=== PATIENT | male | born 1980 | race Hispanic/Latino ===

== ENCOUNTER 2017-11-06 06:30 | Day surgery (SDC) | payer BC ==
[2017-11-06 07:17] VITALS: O2SAT 100
[2017-11-06] MEDS ORDERED: Propofol 10 mg/ml Inj (20 ML) ONE (08:40)
[2017-11-06 09:32] VITALS: TEMP 98.6
[2017-11-06 11:41] VITALS: BP 93/55; PULSE 59; RESP 17
== END 2017-11-06 10:30 | disposition home or self-care (01) ==
LOC: C.ENDO 06:30
PROVIDERS: ATTEND Internal Medicine Gastroenterology
DX: K29.70 Gastritis, unspecified, without bleeding (principal); K50.90 Crohn's disease, unspecified, without complications
CPT/HCPCS: 43239; 45380; 88305; J2001; J2704; J3010